=== PATIENT | male | born 1985 ===

== ENCOUNTER → 2019-04-21 | Outpatient (REF) | payer BC ==
[2019-04-21 18:39] LABS: RHEUMATOID FACTOR QUANT < 10.0 IU/ML (<15.0)
[2019-04-22 12:12] LABS: ALBUMIN 4.65 GM/DL (3.29-5.55); ALBUMIN % 66.4 % (55.8-66.1); ALPHA-1-GLOBULIN % 4.2 % (2.9-4.9); ALPHA-1-GLOBULINS 0.29 GM/DL (0.17-0.41); ALPHA-2-GLOBULINS 0.64 GM/DL (0.42-0.99); ALPHA-2-GLOBULINS % 9.2 % (7.1-11.8); BETA-1-GLOBULINS 0.39 GM/DL (0.28-0.60); BETA-1-GLOBULINS % 5.5 % (4.7-7.2); BETA-2-GLOBULINS 0.27 GM/DL (0.19-0.55); BETA-2-GLOBULINS % 3.9 % (3.2-6.5); GAMMA GLOBULIN % 10.8 % (11.1-18.8)
[2019-04-22 12:13] LABS: GAMMA GLOBULINS 0.76 GM/DL (0.65-1.58)
[2019-04-22 14:44] LABS: FOLATE 20.2 NG/ML; VITAMIN B12 LEVEL 722 PG/ML
== END ==
LOC: M LABNEURO 13:20
PROVIDERS: ATTEND Psychiatry & Neurology Neurology
DX: R20.0 Anesthesia of skin (principal)